=== PATIENT | male | born 1960 | race Caucasian/White ===

== ENCOUNTER 2016-08-01 22:21 | Inpatient (IN) | payer MEDICAID ==
[~2016-08-01] VITALS: Ht 175.3 cm; Wt 62.0 kg
[2016-08-01] MEDS ORDERED: ALBUTEROL/IPRATROPIUM 2.5MG/0.5MG, 3 ML NEB ONE (23:00)
[2016-08-01] MEDS ORDERED: LEVOFLOXACIN/PMX 750MG/150ML 150 ML ONE (23:13)
[2016-08-01 23:23] LABS: BLOOD UREA NITROGEN 15 mg/dL (7-18)
[2016-08-01 23:24] LABS: ASPARTATE AMINO TRANSFERASE 15 U/L (15-37)
[2016-08-01 23:30] LABS: IS PT STATUS REG ER OR PRE ER? YES
[2016-08-01] MEDS ORDERED: LEVOFLOXACIN/PMX 750MG/150ML 150 ML IV ONE (23:30)
[2016-08-01] MEDS ORDERED: ASPIRIN 81 MG TABLET CHEW ONE (23:50)
[2016-08-02] MEDS ORDERED: ASPIRIN 81 MG TABLET CHEW PO ONE
[2016-08-02] MEDS ORDERED: KETOROLAC 30 MG/1 ML IVPush PRN (01:00)
[2016-08-02] MEDS ORDERED: GUAIFENESIN/DM 200-20MG, 10ML UDC PO PRN (01:00)
[2016-08-02] MEDS ORDERED: ONDANSETRON 2MG/ML, 2ML IVP PRN (01:00)
[2016-08-02] MEDS ORDERED: POLYETHYLENE GLYCOL 17 GM PACKET PO PRN (01:00)
[2016-08-02] MEDS ORDERED: BISACODYL 10 MG SUPP PR PRN (01:00)
[2016-08-02] MEDS ORDERED: HEPARIN 5,000 UNITS/ML, 1ML ONE (01:12)
[2016-08-02] MEDS ORDERED: NICOTINE 21 MG/24 HR PATCH.TD24 ONE (01:12)
[2016-08-02] MEDS ORDERED: CEFTRIAXONE PMX 1GM/50ML 50 ML ONE (01:13)
[2016-08-02] MEDS: HEPARIN 5,000 UNITS/ML, 1ML SQ SCH ×3 (01:24→17:15)
[2016-08-02] MEDS: NICOTINE 21 MG/24 HR PATCH.TD24 TD SCH (01:24)
[2016-08-02] MEDS: CEFTRIAXONE PMX 1GM/50ML 50 ML IV SCH (01:25)
[2016-08-02 01:55] VITALS: BP 145/76
[2016-08-02 02:00] VITALS: BP 145/76
[2016-08-02] MEDS: ACETAMINOPHEN 325 MG TABLET PO PRN ×2 (02:32→17:19)
[2016-08-02] MEDS: SODIUM CHLORIDE 0.9% 1,000 ML IV SCH ×2 (02:32→11:26)
[2016-08-02] MEDS: AZITHROMYCIN 500 MG in SODIUM CHLORIDE 0.9% 250 ML IV SCH (02:39)
[2016-08-02 03:31] LABS: RAPID INFLUENZA A Negative (Negative); RAPID INFLUENZA B Negative (Negative)
[2016-08-02 05:33] LABS: ASPARTATE AMINO TRANSFERASE 16 U/L (15-37); BLOOD UREA NITROGEN 14 mg/dL (7-18)
[2016-08-02 05:38] LABS: IS PT STATUS REG ER OR PRE ER? NO
[2016-08-02] MEDS ORDERED: ALBUTEROL/IPRATROPIUM 2.5MG/0.5MG, 3 ML NPPB SCH (07:00)
[2016-08-02 07:03] VITALS: BP 122/74
[2016-08-02] MEDS: FLUTICASONE/VILANTEROL 100-25MCG/INH INH SCH (08:50)
[2016-08-02] MEDS: SENNA/DOCUSATE TABLET PO SCH (08:50)
[2016-08-02] MEDS ORDERED: ALBUTEROL/IPRATROPIUM 2.5MG/0.5MG, 3 ML NPPB PRN (09:30)
[2016-08-02 11:47] LABS: IS PT STATUS REG ER OR PRE ER? NO
[2016-08-02 14:40] VITALS: BP 134/81
[2016-08-02 20:00] VITALS: BP 144/80
[2016-08-03 01:07] VITALS: BP 147/77
[2016-08-03] MEDS: NICOTINE 21 MG/24 HR PATCH.TD24 TD SCH (01:10)
[2016-08-03] MEDS: CEFTRIAXONE PMX 1GM/50ML 50 ML IV SCH (01:11)
[2016-08-03] MEDS: HEPARIN 5,000 UNITS/ML, 1ML SQ SCH ×2 (01:11→09:05)
[2016-08-03] MEDS: AZITHROMYCIN 500 MG in SODIUM CHLORIDE 0.9% 250 ML IV SCH (02:22)
[2016-08-03] MEDS ORDERED: ASPIRIN 325 MG TABLET PO SCH (06:00)
[2016-08-03 07:46] VITALS: BP 131/78
[2016-08-03] MEDS ORDERED: REGADENOSON 0.4 MG/5 ML SYRINGE ONE (08:31)
[2016-08-03] MEDS: SENNA/DOCUSATE TABLET PO SCH (09:00)
[2016-08-03] MEDS: FLUTICASONE/VILANTEROL 100-25MCG/INH INH SCH (09:05)
[2016-08-03] MEDS ORDERED: CEFD300C37 PO (13:48)
[2016-08-03] MEDS ORDERED: AZIT500T77 PO (13:48)
[2016-08-03 14:18] VITALS: BP 136/81
== END 2016-08-03 16:05 | disposition home or self-care (01) | DRG 190 ==
LOC: ED 23:55 → EDIP 08-02 00:32 → 4WST 08-02 01:46
PROVIDERS: ADMIT Internal Medicine; ATTEND Internal Medicine
DX: J44.0 Chronic obstructive pulmonary disease with (acute) lower respiratory infection (principal); J18.9 Pneumonia, unspecified organism; E43 Unspecified severe protein-calorie malnutrition; E87.0 Hyperosmolality and hypernatremia; E87.1 Hypo-osmolality and hyponatremia; F32.9 Major depressive disorder, single episode, unspecified; Z82.49 Family history of ischemic heart disease and other diseases of the circulatory system; F17.200 Nicotine dependence, unspecified, uncomplicated; J44.9 Chronic obstructive pulmonary disease, unspecified; Z91.14 Patient's other noncompliance with medication regimen
CPT/HCPCS: 36415; 71020; 78452; 80053; 80061; 83605; 83880; 84145; 84439; 84443; 84484; 85025; 85379; 87040; 87070; 87205; 87400; 93005; 93017; 94640; 96365; J0456; J0696; J1644; J1956; J2785; J7620; A9502; C9898; J7030; J7050

== ENCOUNTER 2016-12-10 16:25 | Observation (INO) | payer MEDICAID ==
[~2016-12-10] VITALS: Ht 175.3 cm; Wt 66.0 kg
[~2016-12-10 16:25] MED LIST: AZIT500T5 PO; CEFD300C37 PO
[2016-12-10 16:50] LABS: WHITE BLOOD COUNT 10.7 x10^3/uL (3.4-10)
[2016-12-10 17:01] LABS: BLOOD UREA NITROGEN 9 mg/dL (7-18)
[2016-12-10 17:02] LABS: ACETAMINOPHEN < 2 mcg/mL (10-30)
[2016-12-10] MEDS ORDERED: TRAZ50TA18 PO (17:55)
[2016-12-10 19:14] LABS: DAU SCREEN DISCLAIMER
[2016-12-10] MEDS ORDERED: ALBU8.5H8 INH (22:45)
[2016-12-10] MEDS ORDERED: OLANZAPINE 10 MG INJ IM ONE (23:00)
[2016-12-11] MEDS ORDERED: ONDANSETRON ODT 4 MG PO PRN (01:00)
[2016-12-11] MEDS ORDERED: POLYETHYLENE GLYCOL 17 GM PACKET PO PRN (01:00)
[2016-12-11] MEDS ORDERED: LORazepam 1MG TABLET PO PRN (01:00)
[2016-12-11 01:31] VITALS: BP 146/91
[2016-12-11] MEDS ORDERED: ALBUTEROL SULFATE 2.5 MG/3 ML NPPB PRN (04:00)
[2016-12-11 08:00] VITALS: BP 139/85
[2016-12-11] MEDS ORDERED: MAGNESIUM CHLORIDE 64 MG TABLET.DR PO SCH (09:00)
[2016-12-11] MEDS ORDERED: THIAMINE 100MG TABLET PO SCH (09:00)
[2016-12-11] MEDS ORDERED: MULTIVITAMIN 1 TABLET PO SCH (09:00)
[2016-12-11] MEDS ORDERED: FOLIC ACID 1 MG TABLET PO SCH (09:00)
[2016-12-11] MEDS ORDERED: BACLOFEN 10 MG TABLET PO SCH (09:00)
[2016-12-11 10:45] LABS: HEMATOCRIT 45.8 % (39.2-51.8); HEMOGLOBIN 15.7 g/dL (13.7-18.0)
[2016-12-11 19:00] VITALS: BP 130/78
[2016-12-11 19:21] VITALS: BP 117/74
== END 2016-12-11 19:12 ==
LOC: ED 18:10 → EDIP 12-11 00:11 → 3E 12-11 01:30
PROVIDERS: ADMIT Internal Medicine; ATTEND Family Medicine
DX: F23 Brief psychotic disorder (principal); R45.850 Homicidal ideations; D72.829 Elevated white blood cell count, unspecified; J44.9 Chronic obstructive pulmonary disease, unspecified; F10.129 Alcohol abuse with intoxication, unspecified
CPT/HCPCS: 36415; 80048; 80307; 80329; 82040; 85025; 93005; 96372; 99285; G0378; G0480

== ENCOUNTER 2017-04-10 18:44 | Emergency (ER) | payer MEDICAID ==
[~2017-04-10] VITALS: Ht 175.3 cm; Wt 65.9 kg
[~2017-04-10 18:44] MED LIST changes: +ALBU8.5H8 INH; +TRAZ50TA18 PO
[2017-04-10 19:10] VITALS: BP 146/85
[2017-04-10] MEDS ORDERED: IBUPROFEN 200 MG TABLET ONE (21:05)
[2017-04-10] MEDS ORDERED: IBUPROFEN 200 MG TABLET PO ONE (21:30)
[2017-04-10] MEDS ORDERED: BACITRACIN ZINC OINT 500U/GM, 0.9 GM ONE (21:38)
== END 2017-04-10 21:49 | disposition home or self-care (01) ==
LOC: ED 21:43
DX: S60.132A Contusion of left middle finger with damage to nail, initial encounter (principal); W23.0XXA Caught, crushed, jammed, or pinched between moving objects, initial encounter; Y93.89 Activity, other specified; Y92.89 Other specified places as the place of occurrence of the external cause; Y99.8 Other external cause status
CPT/HCPCS: 11740; 99284

== ENCOUNTER 2017-10-15 11:42 | Emergency (ER) | payer MEDICAID ==
[~2017-10-15] VITALS: Ht 175.3 cm; Wt 58.6 kg
[2017-10-15 11:44] VITALS: BP 141/88
[2017-10-15] MEDS ORDERED: SODIUM CHLORIDE 0.9% 1,000ML IVBOLUS ONE (12:00)
[2017-10-15] MEDS ORDERED: SODIUM CHLORIDE FLUSH 10ML SYR IVF ONE (12:00)
[2017-10-15 12:27] LABS: BASOPHILS # (AUTO) 0.09 x10^3/uL (0-0.1); BASOPHILS % (AUTO) 1 % (0-1); EOSINOPHILS % (AUTO) 1 % (1-7); LYMPHOCYTES % (AUTO) 15 % (22-44); MD NO; MEAN CORPUSCULAR HEMOGLOBIN 33.4 pg (27.5-34.5); MEAN CORPUSCULAR HGB CONC 34.6 g/dL (33.2-36.2); MEAN CORPUSCULAR VOLUME 96.6 fL (81-97); MEAN PLATELET VOLUME 8.1 fL (7.4-10.4); MONOCYTES # (AUTO) 1.01 x10^3/uL (0.2-0.8); MONOCYTES % (AUTO) 10 % (2-9); NEUTROPHILS # (AUTO) 7.04 x10^3/uL (1.8-6.8); NEUTROPHILS % (AUTO) 73 % (42-75); PLATELET COUNT 297 x10^3/uL (130-400); RED BLOOD COUNT 4.58 x10^6/uL (4.38-5.82); RED CELL DISTRIBUTION WIDTH 14.3 % (9.4-14.8)
[2017-10-15 12:35] LABS: ALBUMIN 3.2 g/dL (3.4-5.0); ANION GAP 6 mmol/L (5-15); CALCIUM 8.8 mg/dL (8.5-10.1); CHLORIDE 107 mmol/L (98-107)
[2017-10-15 12:40] LABS: ALANINE AMINOTRANSFERASE 27 U/L (12-78); ALKALINE PHOSPHATASE 89 U/L (45-117); BILIRUBIN,TOTAL 0.4 mg/dL (0.2-1.0); CREATININE 0.66 mg/dL (0.7-1.3); TOTAL PROTEIN 7.1 g/dL (6.4-8.2)
[2017-10-15 15:09] LABS: CLOSTRIDIUM DIFFICILE ANTIGEN NEGATIVE; CLOSTRIDIUM DIFFICILE TOXIN NEGATIVE (Negative)
== END 2017-10-15 16:22 | disposition home or self-care (01) ==
LOC: ED 12:45
DX: R19.7 Diarrhea, unspecified (principal)
CPT/HCPCS: 36415; 80053; 85025; 87046; 87324; 87427; 89055; 99284

== ENCOUNTER 2020-02-25 15:48 | Emergency (ER) | payer MEDICAID, OTHER ==
[~2020-02-25] VITALS: Ht 175.3 cm; Wt 63.9 kg
[~2020-02-25 15:48] MED LIST changes: +AZIT500T10 PO; -AZIT500T5 PO; -TRAZ50TA18 PO; +TRAZ50TA66 PO
--- NOTE | 2020-02-25 17:55 | NUR ---
PT HAS CO COVID SYMPTOMS, WEAKNESS, FATIGUE. DENIES CP. PT NOT IN RESP DISTRESS. SWABBED FOR COVID. VSS
[2020-02-25 18:18] LABS: BASOPHILS % (AUTO) 2 % (0-1); EOSINOPHILS % (AUTO) 3 % (1-7); LYMPHOCYTES % (AUTO) 16 % (22-44); MEAN CORPUSCULAR HEMOGLOBIN 32.5 pg (27.5-34.5); MEAN CORPUSCULAR HGB CONC 34.1 g/dL (33.2-36.2); MEAN PLATELET VOLUME 7.9 fL (7.4-10.4); MONOCYTES % (AUTO) 16 % (2-9); NEUTROPHILS % (AUTO) 64 % (42-75); PLATELET COUNT 289 x10^3/uL (130-400); RED BLOOD COUNT 4.44 x10^6/uL (4.38-5.82); RED CELL DISTRIBUTION WIDTH 13.9 % (9.4-14.8)
[2020-02-25 18:27] LABS: MD NO
[2020-02-25 18:29] LABS: ALANINE AMINOTRANSFERASE 24 U/L (12-78); ALBUMIN 3.3 g/dL (3.4-5.0); ANION GAP 5 mmol/L (5-15); CALCIUM 8.7 mg/dL (8.5-10.1); CHLORIDE 107 mmol/L (98-107); CREATININE 0.74 mg/dL (0.7-1.3)
--- NOTE | 2020-02-25 18:31 | NUR ---
PT RESTING, SPO2 98% RA. WATCHING TV. AWAITING PENDING LABS.
[2020-02-25 18:33] LABS: ALKALINE PHOSPHATASE 116 U/L (45-117); BILIRUBIN,TOTAL 0.2 mg/dL (0.2-1.0); TOTAL PROTEIN 7.3 g/dL (6.4-8.2); TROPONIN I < 0.015 ng/mL (0.000-0.045)
--- NOTE | 2020-02-25 19:21 | NUR ---
Patient given discharge instructions and they have confirmed that they understand the instructions. Patient ambulatory with steady gait.
[2020-02-25 19:22] VITALS: BP 129/84
== END 2020-02-25 19:24 | disposition home or self-care (01) ==
LOC: ED 19:01
DX: B34.9 Viral infection, unspecified (principal); Z20.828 Contact with and (suspected) exposure to other viral communicable diseases; R07.89 Other chest pain; R53.1 Weakness; J02.9 Acute pharyngitis, unspecified; R05 Cough
CPT/HCPCS: 71045; 80053; 84484; 85025; 87635; 93005; 99285

== ENCOUNTER 2020-03-02 22:52 | Emergency (ER) | payer SELFPAY ==
[~2020-03-02] VITALS: Ht 175.3 cm; Wt 70.0 kg
[2020-03-02] MEDS ORDERED: methylPREDNISolone SOD SUCC 125 MG/2 ML IV ONE (23:30)
[2020-03-02] MEDS ORDERED: SODIUM CHLORIDE FLUSH 10ML SYR IVF ONE (23:30)
[2020-03-02] MEDS ORDERED: ALBUTEROL/IPRATROPIUM 2.5MG/0.5MG, 3 ML NPPB SCH (23:30)
[2020-03-02] MEDS ORDERED: methylPREDNISolone SOD SUCC 125 MG/2 ML ONE (23:32)
[2020-03-02] MEDS ORDERED: ALBUTEROL/IPRATROPIUM 2.5MG/0.5MG, 3 ML ONE (23:32)
[2020-03-02 23:49] LABS: BASOPHILS % (AUTO) 1 % (0-1); EOSINOPHILS % (AUTO) 3 % (1-7); LYMPHOCYTES % (AUTO) 18 % (22-44); MEAN CORPUSCULAR HEMOGLOBIN 32.7 pg (27.5-34.5); MEAN CORPUSCULAR HGB CONC 34.4 g/dL (33.2-36.2); MEAN PLATELET VOLUME 7.8 fL (7.4-10.4); MONOCYTES % (AUTO) 13 % (2-9); NEUTROPHILS % (AUTO) 65 % (42-75); PLATELET COUNT 318 x10^3/uL (130-400); RED BLOOD COUNT 4.67 x10^6/uL (4.38-5.82); RED CELL DISTRIBUTION WIDTH 13.7 % (9.4-14.8)
[2020-03-02 23:50] LABS: MD NO
[2020-03-03 00:01] LABS: ALBUMIN 3.4 g/dL (3.4-5.0); ANION GAP 8 mmol/L (5-15); CALCIUM 8.8 mg/dL (8.5-10.1); CHLORIDE 109 mmol/L (98-107); CREATININE 0.96 mg/dL (0.7-1.3)
[2020-03-03 00:05] LABS: TROPONIN I < 0.015 ng/mL (0.000-0.045)
[2020-03-03 01:43] VITALS: BP 135/85
== END 2020-03-03 02:00 | disposition home or self-care (01) ==
LOC: ED 23:49
DX: J44.1 Chronic obstructive pulmonary disease with (acute) exacerbation (principal); R05 Cough; R06.02 Shortness of breath; M79.10 Myalgia, unspecified site; F17.200 Nicotine dependence, unspecified, uncomplicated
CPT/HCPCS: 36415; 71045; 80048; 82040; 83605; 83880; 84484; 85025; 87040; 93005; 94640; 96374; 99285; J2930; 99284

== ENCOUNTER 2020-08-01 10:08 | Emergency (ER) | payer MEDICAID ==
[~2020-08-01] VITALS: Ht 175.3 cm; Wt 63.9 kg
[2020-08-01 10:51] LABS: BASOPHILS % (AUTO) 0 % (0-1); EOSINOPHILS % (AUTO) 1 % (1-7); LYMPHOCYTES % (AUTO) 6 % (22-44); MEAN CORPUSCULAR HEMOGLOBIN 32.9 pg (27.5-34.5); MEAN CORPUSCULAR HGB CONC 34.6 g/dL (33.2-36.2); MEAN PLATELET VOLUME 7.7 fL (7.4-10.4); MONOCYTES % (AUTO) 10 % (2-9); NEUTROPHILS % (AUTO) 82 % (42-75); PLATELET COUNT 273 x10^3/uL (130-400); RED BLOOD COUNT 4.85 x10^6/uL (4.38-5.82)
[2020-08-01 10:55] LABS: MD NO
[2020-08-01] MEDS ORDERED: KETOROLAC 30 MG/1 ML ONE (10:57)
[2020-08-01] MEDS ORDERED: ACETAMINOPHEN 325 MG TABLET ONE (10:57)
[2020-08-01] MEDS ORDERED: ACETAMINOPHEN 325 MG TABLET PO ONE (11:00)
[2020-08-01] MEDS ORDERED: KETOROLAC 30 MG/1 ML IM ONE (11:00)
[2020-08-01 11:02] LABS: ALBUMIN 3.8 g/dL (3.4-5.0); ANION GAP 6 mmol/L (5-15); CHLORIDE 105 mmol/L (98-107)
[2020-08-01 11:03] LABS: CREATININE 0.93 mg/dL (0.7-1.3)
[2020-08-01 11:36] VITALS: BP 140/85
== END 2020-08-01 12:04 | disposition home or self-care (01) ==
LOC: ED 11:58
DX: L03.311 Cellulitis of abdominal wall (principal); L03.211 Cellulitis of face; M79.10 Myalgia, unspecified site; M25.562 Pain in left knee; M25.561 Pain in right knee; J44.9 Chronic obstructive pulmonary disease, unspecified
CPT/HCPCS: 36415; 73564; 80048; 82040; 85025; 96372; 99284; J1885